=== PATIENT | male | born 1995 ===

== ENCOUNTER 2017-06-08 18:15 | Emergency (ER) | payer MEDICAID ==
[2017-06-08 18:18] VITALS: BP 115/66; PULSE 101; RESP 14; TEMP 98.7; TEMP 99; O2SAT 98
--- NOTE | 2017-06-08 20:08 | PD ---
HPI Chief Complaint: ENT Complaint Time Seen by Provider: 20:01 Travel History International Travel<30 days: No Contact w/Intl Traveler<30days: No Traveled to known affect area: No History of Present Illness HPI 22-year-old male patient presents emergency department for evaluation of sore throat 1 week. Patient states he's been running intermittent fevers as high as 102. The fevers are responsive to Motrin and Tylenol. He denies any cough, chest pain, abdominal pain, nausea, vomiting, diarrhea. Patient has no major medical history and does not take any daily medication. Patient has decreased appetite but is still able to eat and drink to stay hydrated. PFSH Past Medical History Medical History: Denies Significant Hx Tetanus Vaccination: Unknown Past Surgical History Surgical History: No Previous Surgery Social History Alcohol Use: No Tobacco Use: No Substance Use: No Allergies-Medications (Allergen,Severity, Reaction): Coded Allergies: No Known Allergies (Unverified , 06/08/17) Review of Systems Except as stated in HPI: all other systems reviewed are Neg Physical Exam Narrative GENERAL: Well-nourished, well-developed 22-year-old male patient in no acute distress. Nontoxic appearing. SKIN: Focused skin assessment warm/dry. HEAD: Normocephalic. Atraumatic. EYES: No scleral icterus. No injection or drainage. THROAT: Pharyngeal injection with tonsillar hypertrophy and large white exudates covering bilateral tonsils. Uvula midline. Airway is patent. NECK: Supple, trachea midline. No JVD or lymphadenopathy. CARDIOVASCULAR: Regular rate and rhythm without murmurs, gallops, or rubs. RESPIRATORY: Breath sounds equal bilaterally. No accessory muscle use. GASTROINTESTINAL: Abdomen soft, non-tender, nondistended. MUSCULOSKELETAL: No cyanosis, or edema. Data Data Last Documented VS Vital Signs Date Time Temp Pulse Resp B/P (MAP) Pulse Ox O2 Delivery O2 Flow Rate FiO2 06/08/17 21:12 06/08/17 18:18 98.7 101 14 98 Orders Orders Group A Rapid Strep Screen (06/08/17 18:30) Penicillin G Benzathine Inj (Bicillin L- (06/08/17 20:15) Ed Discharge Order (06/08/17 20:56) MDM Medical Decision Making Medical Screen Exam Complete: Yes Emergency Medical Condition: Yes Differential Diagnosis Differential diagnoses include but not limited to pharyngitis, URI, viral syndrome Narrative Course Rapid strep is positive. Patient treated with IM injection of benzathine penicillin. Patient discharged home with instructions for supportive care to return to the emergency Department with any worsening condition. Diagnosis Primary Impression: Strep pharyngitis Referrals: Primary Care Physician Patient Instructions: General Instructions, Strep Throat (ED) Additional Instructions: Please return to emergency department if your symptoms return or worsen. Follow up with your primary care provider. Alternate ibuprofen and Tylenol as seen for pain or fevers. Supportive care, stay hydrated, get enough rest, diet as tolerated. Disposition: 01 DISCHARGE HOME Condition: Stable Kelly Wang Jun 08, 2017 20:08
[2017-06-08] MEDS ORDERED: PENICILLIN G BENZATHINE 1,200,000 UNITS/2 ML SYRINGE IM ONE (20:15)
== END 2017-06-08 21:14 | disposition home or self-care (01) ==
LOC: NEPK 18:15
DX: J02.0 Streptococcal pharyngitis (principal)
CPT/HCPCS: 87880; 96372; 99284; J0561